=== PATIENT | male | born 1995 | race Caucasian/White ===

== ENCOUNTER 2016-04-07 11:35 | Emergency (ER) | payer OTHER ==
[2016-04-07] VITALS (7 sets, daily range): BP systolic 101–148; BP diastolic 44–88; PULSE 70–82; TEMP 31.9; O2SAT 100
[2016-04-07] MEDS ORDERED: RAPID SEQUENCE INDUCTION BAG ONE (11:38)
[2016-04-07] MEDS ORDERED: ETOMIDATE 2 MG/ML 20 ML VIAL IV ONE (11:38)
[2016-04-07] MEDS ORDERED: ROCURONIUM BROMIDE 10 MG/ML 10 ML VIAL IV ONE (11:38)
[2016-04-07] MEDS ORDERED: SODIUM CHLORIDE 0.9% 1000ML 1,000 ML IV ONE (11:53)
[2016-04-07] MEDS ORDERED: SODIUM CHLORIDE 0.9% 1000ML 1,000 ML IV STA (11:53)
--- NOTE | 2016-04-07 11:54 | EMERGENCY ROOM VISIT NOTE ---
History Report prepared by Abi: Marlo Manuel Under the Supervision of: Dr. Radames Spence M.D. First contact with patient: 11:35 Chief Complaint: UNRESPONSIVE Stated Complaint: UNRESPONSIVE History of Present Illness The patient is a 20 year old male who presents to the Emergency Room with complaints of persistent unresponsiveness that started prior to arrival today. Per EMS, the patient has been unresponsive for an unknown amount of time. The patient was seen yesterday evening at a [employer] drinking. He was sleeping on a couch and did get up sometime at night, and apparently did fall down the stairs. He was found this morning lying on the floor unresponsive. The patient has trauma on his left forehead, a bruise on his left abdomen, an abrasion on both knees, and a bruise on his left elbow. He was hypotensive, and has a blood pressure in the 70s and 80s. His blood sugar is 234. Source of History: EMS History Limited By: other (unresponsiveness) Onset: Prior to arrival today Position: other (global - unresponsiveness) Timing: other (persistent) Note: Associated symptoms: trauma on left forehead, bruise on left abdomen, abrasion on both knees, bruise on left elbow. Review of Systems ROS limited secondary to patient's unresponsiveness. Past Medical & Surgical Unknown Family History Family history unobtainable secondary to patient's unresponsiveness. Social History Alcohol Use: occasionally Marital Status: single Housing Status: lives with roommate Occupation Status: [employer] student Current/Historical Medications Unable to Obtain Active Prescriptions or Reported Meds Allergies Uncoded Allergies: SEASONAL ALLERGIES (Allergy, Mild, runny nose, 04/07/16) Physical Exam Vital Signs Date Time Temp Pulse Resp B/P Pulse Ox O2 Delivery O2 Flow Rate FiO2 04/07/16 13:40 77 100 04/07/16 13:37 76 17 123/63 100 Mechanical Ventilator 04/07/16 13:35 77 100 04/07/16 13:30 75 100 04/07/16 13:26 73 22 124/47 100 04/07/16 13:25 73 22 100 04/07/16 13:20 71 18 100 04/07/16 13:17 70 18 132/46 100 Mechanical Ventilator 04/07/16 13:15 70 18 101/88 100 04/07/16 13:15 70 18 101/88 100 04/07/16 13:14 124/47 04/07/16 13:10 71 18 119/44 100 04/07/16 13:08 116/43 04/07/16 13:07 71 18 119/44 100 Mechanical Ventilator 04/07/16 13:05 70 18 124/44 100 17 13:05 70 18 124/44 100 17 13:03 119/44 04/07/16 13:01 72 18 114/39 100 Mechanical Ventilator 04/07/16 13:00 72 18 0/0 100 04/07/16 13:00 72 18 114/49 100 04/07/16 12:58 114/39 04/07/16 12:56 76 18 127/44 100 04/07/16 12:55 76 18 100 04/07/16 12:53 127/44 04/07/16 12:51 135/43 04/07/16 12:51 78 18 135/43 98 Mechanical Ventilator 04/07/16 12:50 77 18 99 04/07/16 12:45 82 18 100 04/07/16 12:45 31.9 82 18 148/57 100 04/07/16 12:40 66 18 100 04/07/16 12:36 66 16 148/57 100 Mechanical Ventilator 04/07/16 12:35 67 15 100 04/07/16 12:33 148/57 04/07/16 12:30 70 14 100 04/07/16 12:28 146/53 04/07/16 12:25 71 14 100 04/07/16 12:23 144/45 04/07/16 12:20 0 137/54 04/07/16 12:20 68 137/54 66 Mechanical Ventilator 04/07/16 12:15 0 04/07/16 12:10 0 04/07/16 12:05 0 04/07/16 12:00 0 04/07/16 11:55 0 04/07/16 11:50 74/57 04/07/16 11:50 80 0 96 04/07/16 11:48 74/57 04/07/16 11:47 60 18 106/45 99 Nasal Cannula 2.0 04/07/16 11:45 58 14 100 04/07/16 11:44 106/45 04/07/16 11:40 51 04/07/16 11:40 46 100 2/3/17 11:37 107/50 04/07/16 11:35 100 Nasal Cannula 2.0 04/07/16 11:35 31.9 48 16 107/50 100 Nasal Cannula 2.0 Physical Exam General: Well developed well nourished young male who is unresponsive to painful stimuli, breathing shallowly on supplemental oxygen. HEENT: Pupils are mid-sized and minimally reactive. There may be a right eye disconjugate gaze. Bruise on left forehead, and blood from right naries. Neck: Supple with a midline trachea. No meningeal signs or stiffness, no JVD or bruits. No Stridor. Chest: Clear to auscultation bilaterally. No wheezes or rhonchi. No increased work of breathing. Heart: regular rate and rhythm. Abdomen: Soft nontender, nondistended without rebound guarding or rigidity. Extremities: No cyanosis clubbing or edema. No calf tenderness or assymetry Spine/Back. Non tender to palpation. No CVA tenderness Skin: There is a bruise on left abdomen and several bruises on extremities. Neurologic exam: Nonresponsive. Medical Decision & Procedures ER Provider Diagnostic Interpretation: X ray results as stated below per my interpretation and radiologist interpretation. Other radiology results as stated below per my review and radiologist interpretation: CT HEAD WITHOUT CONTRAST (CT) CLINICAL HISTORY: Trauma. Unresponsive patient. COMPARISON STUDY: No previous studies for comparison. TECHNIQUE: Axial CT of the brain is performed from the vertex to the skull base. IV contrast was not administered for this examination. CT DOSE: 729.78 mGycm FINDINGS: There is a right-sided mixed attenuation subdural hematoma measuring 9 mm in maximal thickness. There is also hemorrhage layering along the right tentorium. There is 11 mm of right to left midline shift. There is right hemispheric edema. There is trace left parietal subarachnoid hemorrhage There is no evidence of pathologic ventricular dilatation. There is no evidence of acute sinusitis IMPRESSION: Right convexity and tentorial subdural hematoma measuring 9 mm in maximal thickness. There is secondary edema with 11 mm of right to left midline shift. Trace left parietal subarachnoid hemorrhage is also suspected Electronically signed by: Tom Kumar M.D. 04/07/2016 12:25 PM Dictated Date/Time: 04/07/2016 12:22 PM CHEST ONE VIEW PORTABLE CLINICAL HISTORY: Atypical chest pain. RESPIRATORY FAILURE COMPARISON STUDY: No previous studies for comparison. FINDINGS: There is an endotracheal tube 47 mm above the evon. The heart is normal in size. There is no focal pulmonary consolidation. There are no pleural effusions.[ IMPRESSION: Endotracheal tube 47 mm above the evon. No evidence of focal pulmonary consolidation. Electronically signed by: Tom Kumar M.D. 04/07/2016 12:10 PM Dictated Date/Time: 04/07/2016 12:[address] OF THE CERVICAL SPINE CLINICAL HISTORY: Trauma. Unresponsive patient COMPARISON STUDY: No previous studies for comparison. CT DOSE: 500.67 mGycm TECHNIQUE: CT scan of the cervical spine was performed from the skull base to the thoracic inlet. Images are reviewed in the axial, sagittal, and coronal planes. IV contrast was not administered for this examination. FINDINGS: There is indwelling endotracheal tube. No pneumothorax is visualized. The prevertebral soft tissues are normal. No fractures or subluxations are visualized. IMPRESSION: No evidence of acute fracture or traumatic subluxation. Electronically signed by: Tom Kumar M.D. 04/07/2016 12:28 PM Dictated Date/Time: 04/07/2016 12:[address] OF THE CHEST WITHOUT IV CONTRAST CLINICAL HISTORY: Trauma. Unresponsive patient. COMPARISON STUDY: No previous studies for comparison. CT DOSE: 557.51 mGycm TECHNIQUE: CT of the thorax was performed from the thoracic inlet to the lung bases. Images are reviewed in the axial, sagittal, and coronal planes. IV contrast was not administered for this examination. FINDINGS: Thyroid: Imaged portions of the thyroid gland are normal in appearance. Thoracic aorta: No definite thoracic aortic abnormalities are visualized on this noncontrast study. Soft tissue anterior to the vascular likely represents thymus. Evaluation is limited due to the lack of intravenous contrast. If there is clinical concern the presence of mediastinal injury, the examination should be performed following administration of intravenous contrast. Heart: The heart is normal in size and configuration, without pericardial effusion. Lungs and pleural spaces: No pneumothorax is visualized. There is a pneumomediastinum. There is pulmonary interstitial emphysema within the left lower lobe. There is an indwelling endotracheal tube positioned 2.8 cm above the evon. Mediastinum: There is no mediastinal lymphadenopathy. Gisele: Clear. Axilla: Clear. Upper abdomen: There is a suspected splenic hemorrhage. There is perihepatic hemorrhage. Skeletal structures: There are no lytic or blastic osseous lesions. IMPRESSION: 1. Hemoperitoneum and suspected splenic injury 2. Pneumomediastinum and left lower lobe pulmonary interstitial emphysema 3. Endotracheal tube 2.8 cm above the evon 4. Soft tissue anterior to the thoracic aorta likely representing thymus. If there is clinical concern over the presence of a mediastinal injury, then this examination should be repeated with intravenous contrast. Electronically signed by: Tom Kumar M.D. 04/07/2016 12:37 PM Dictated Date/Time: 04/07/2016 12:[address] SCAN OF THE ABDOMEN AND PELVIS WITHOUT IV CONTRAST CLINICAL HISTORY: Trauma. COMPARISON STUDY: No priors. TECHNIQUE: CT scan of the abdomen and pelvis is performed from the lung bases to the proximal femora. Images are reviewed in the axial, sagittal, and coronal planes. IV contrast was not administered for this examination as per the referring clinician. Note that the examination is significantly suboptimal without IV contrast in the setting of trauma. The examination is also degraded by streak artifact from the arms which could not be elevated above the abdomen. Automated dose control exposure was utilized. CT DOSE: 1087.24 mGycm FINDINGS: Lung bases: The heart is normal in size and without pericardial effusion. Pneumomediastinum is present in the lower thorax. The lung bases are otherwise clear. Liver: Evaluation of the liver is degraded by streak artifact. The unenhanced liver is normal in size, contour, and attenuation. There is no intrahepatic biliary ductal dilatation. Although a parenchymal defect is not identified, a liver laceration is strongly suspected due to significant surrounding hemoperitoneum. Gallbladder: Unremarkable. Spleen: Spleen is not well assessed without IV contrast. There is diffusely diminished attenuation throughout the spleen with surrounding hemoperitoneum consistent with a splenic injury/laceration. Pancreas: Unremarkable. Adrenal glands: Unremarkable. Kidneys: The unenhanced kidneys are normal in size and without hydronephrosis. There are no renal calculi identified. There is no evidence of contour deforming renal mass lesion. Abdominal vasculature: The abdominal aorta is normal in course and caliber. Bowel: The small bowel and colon are normal in course and caliber. The appendix is not visualized. Peritoneum: There is a moderate volume of hemoperitoneum identified. There is blood surrounding both the liver and the spleen, as well as blood layering within the paracolic gutters and in the pelvis. No intraperitoneal free air is seen. Lymphadenopathy: None. Pelvic viscera: The bladder, prostate, and seminal vesicles are normal as visualized. Skeletal structures: No fracture is identified. No lytic or blastic lesions are seen. IMPRESSION: 1. Significant suboptimal examination without IV contrast. 2. Moderate volume of hemoperitoneum. 3. There is significant abnormal attenuation seen throughout the spleen with surrounding blood. The appearance is consistent with high-grade splenic injury/laceration. This cannot be further assessed without IV contrast. 4. Hepatic injury/laceration is also suspected given the volume of perihepatic blood. A hepatic parenchymal defect is not clearly visualized due to significant streak artifact and lack of IV contrast. Less likely this could be related to blood from the splenic injury. 5. No fracture is seen. 6. Pneumomediastinum is noted at the lung bases. Findings were called to the emergency department at the time of interpretation. Electronically signed by: Wojciech Mccarthy M.D. 04/07/2016 12:37 PM CHEST ONE VIEW PORTABLE CLINICAL HISTORY: INTUBATED UNRESPONSIVE PATIENT COMPARISON STUDY: April 07, 2016 FINDINGS: There is an endotracheal tube 4.8 cm above the evon. There is no focal pulmonary consolidation. There is been interval placement of a left chest tube which projects over the left apex. There is minimal subcutaneous emphysema on the left. No significant pneumothorax is visualized.[ IMPRESSION: Interval placement of a left-sided chest tube which projects over the left apex. Endotracheal tube 4.8 cm above the evon. Electronically signed by: Tom Kumar M.D. 04/07/2016 1:18 PM Dictated Date/Time: 04/07/2016 1:17 PM Laboratory Results 04/07/16 12:25 Red Blood Count 3.29, Mean Corpuscular Volume 84.5, Mean Corpuscular Hemoglobin 29.2, Mean Corpuscular Hemoglobin Concent 34.5, Mean Platelet Volume 9.2, Neutrophils (%) (Auto) 71.6, Lymphocytes (%) (Auto) 14.7, Monocytes (%) (Auto) 10.6, Eosinophils (%) (Auto) 0.2, Basophils (%) (Auto) 0.1, Neutrophils # (Auto ) 29.22, Lymphocytes # (Auto) 5.99, Monocytes # (Auto) 4.32, Eosinophils # (Auto ) 0.07, Basophils # (Auto) 0.04 04/07/16 12:25 Test 04/07/16 11:12 04/07/16 11:41 04/07/16 11:45 04/07/16 12:05 Salicylates Level 1.7 mg/dl (2.8-20) Acetaminophen Level < 2 ug/ml (10-30) Bedside Lactic Acid Venous > 20.00 mmol/L (0.90-1.70) Bedside Chloride 98 mEq/L (101-112) Bedside Total CO2 11 mEq/l (24-31) Bedside Blood Urea Nitrogen 21 mg/dl (7-18) Bedside Creatinine 3.0 mg/dl Bedside Glucose (other) 225 mg/dl (70-99) Bedside Ionized Calcium (Katie) 1.07 mmol/l Bedside Troponin I 0.060 ng/ml (0-0.045) VG-Gub-Q-Type Natriuretic Peptide < 15 pg/ml (0-450) Test 04/07/16 12:25 04/07/16 13:17 White Blood Count 40.78 K/uL (4.8-10.8) Red Blood Count 3.29 M/uL (4.7-6.1) Hemoglobin 9.6 g/dL (14.0-18.0) Hematocrit 27.8 % (42-52) Mean Corpuscular Volume 84.5 fL (80-100) Mean Corpuscular Hemoglobin 29.2 pg (25-34) Mean Corpuscular Hemoglobin Concent 34.5 g/dl (32-36) Platelet Count 221 K/uL (130-400) Mean Platelet Volume 9.2 fL (7.4-10.4) Neutrophils (%) (Auto) 71.6 % Lymphocytes (%) (Auto) 14.7 % Monocytes (%) (Auto) 10.6 % Eosinophils (%) (Auto) 0.2 % Basophils (%) (Auto) 0.1 % Neutrophils # (Auto) 29.22 K/uL (1.4-6.5) Lymphocytes # (Auto) 5.99 K/uL (1.2-3.4) Monocytes # (Auto) 4.32 K/uL (0.11-0.59) Eosinophils # (Auto) 0.07 K/uL (0-0.5) Basophils # (Auto) 0.04 K/uL (0-0.2) RDW Standard Deviation 40.2 fL (36.4-46.3) RDW Coefficient of Variation 13.2 % (11.5-14.5) Immature Granulocyte % (Auto) 2.8 % Immature Granulocyte # (Auto) 1.14 K/uL (0.00-0.02) Echinocytes 1+ Prothrombin Time 12.8 SECONDS (9.0-12.0) Prothromb Time International Ratio 1.2 (0.9-1.1) Activated Partial Thromboplast Time 35.7 SECONDS (21.0-31.0) Partial Thromboplastin Ratio 1.4 Anion Gap 32.0 mmol/L (3-11) Estimated GFR () 41.6 Estimated GFR (Non- 35.9 BUN/Creatinine Ratio 7.7 (10-20) Calcium Level 7.5 mg/dl (8.5-10.1) Total Bilirubin 0.2 mg/dl (0.2-1) Direct Bilirubin 0.1 mg/dl (0-0.2) Aspartate Amino Transf (AST/SGOT) 87 U/L (15-37) Alanine Aminotransferase (ALT/SGPT) 91 U/L (12-78) Alkaline Phosphatase 96 U/L (45-117) Total Creatine Kinase 343 U/L (39-308) Creatine Kinase MB 6.3 ng/ml (0.5-3.6) Creatine Kinase MB Ratio 1.8 (0-3.0) Total Protein 5.5 gm/dl (6.4-8.2) Albumin 3.2 gm/dl (3.4-5.0) Lipase 63 U/L (73-393) Thyroid Stimulating Hormone (TSH) 0.832 uIu/ml (0.300-4.500) Ethyl Alcohol mg/dL 107.0 mg/dl (0-3) Bedside Hemoglobin 5.8 g/dl (14.0-18.0) Bedside Hematocrit 17 % (42-52) Bedside Blood Gas pH (LAB) 6.97 (7.35-7.45) Bedside Blood Gas pCO2 (LAB) 42 mmHg (35-46) Bedside Blood Gas pO2 (LAB) > 420 mmHg (80-95) Bedside Blood Gas HCO3 (LAB) 10 meq/L (19-24) Bedside Blood Gas Total CO2 11 mEq/l (24-31) Bedside Blood Gas Base Excess (LAB) -22.0 meq/L (-9-1.8) Bedside Blood Gas O2 Saturation 100.0 % (90-95) Bedside Sodium 151 mEq/L (135-144) Bedside Potassium 2.6 mEq/L (3.3-5.0) Laboratory studies as stated above per my review. Medications Administered Medications (Trade) Dose Ordered Sig/Luc Route Start Time Stop Time Status Last Admin Dose Admin Miscellaneous 1 ea 1 ea STK-MED ONCE N/A 04/07/16 11:38 04/07/16 11:40 DC 04/07/16 11:50 1 EA Sodium Chloride 1,000 ml @ 999 mls/hr Q1H1M STAT IV 04/07/16 11:53 04/07/16 12:53 DC 04/07/16 11:47 999 MLS/HR Sodium Chloride (Nss 1000ml) 1,000 ml @ 200 mls/hr Q5H ONCE IV 04/07/16 11:53 04/07/16 16:52 04/07/16 11:45 200 MLS/HR Sodium Bicarbonate (Sodium Bicarbonate 8.4% Inj) 150 meq STK-MED ONCE .ROUTE 04/07/16 12:35 04/07/16 12:37 DC 04/07/16 12:40 150 MEQ Mannitol (Mannitol 25%) 50 gm NOW ONCE IV 04/07/16 12:45 04/07/16 13:12 DC 04/07/16 12:40 50 GM Sodium Chloride (Sodium Chloride 14.6%) 387.5 meq NOW ONCE IV 04/07/16 13:15 04/07/16 13:16 DC 04/07/16 13:28 387.5 MEQ Potassium Chloride (Kcl 10 Meq / Wtr) 20 meq STK-MED ONCE IV 04/07/16 13:47 04/07/16 13:48 DC 04/07/16 13:47 20 MEQ Calcium Gluconate (Calcium Gluconate 10%) 1,000 mg STK-MED ONCE IV 04/07/16 13:48 04/07/16 13:50 DC 04/07/16 13:54 1,000 MG Procedure Endotracheal Intubation Indication Unresponsive, airway protection. The patient was on 100% oxygen via NRB prior to the procedure. Suction, airway equipment, RSI drugs, respiratory equipment, and appropriate personnel were prepared prior to the initiation of the procedure. A time out was taken. Induction was performed with Rocuronium. No sedation was required due to altered mental status. After observing the clinical benefit of the medications , the airway was easily visualized utilizing a Mac 4.0 blade. A 7.5 size ETT tube was placed atraumatically to 24 cm at the teeth using standard technique. The cuff inflated without signs of malfunction. There were bilateral breath sounds, positive colormetric change, no gastric sounds, a good capnography waveform, and post procedure pulse oximetry was 100%. Paralysis was administered using Rocuronium. There were no complications. ED Course 1136: Past medical records reviewed. The patient was evaluated in room B1, and a history and physical examination were performed. 1153: Ordered NSS 1000 ml @ 200 mls/hr IV, NSS 1000 ml @ 999 mls/hr IV. 1204: I talked to the patient's brother. 1215: I talked to the patient's mother. She agrees to have the patient transferred to [facility] for further treatment. 1225: I discussed the patient with a surgeon at [facility] - [facility] accept the patient as a transfer for further treatment via helicopter. 1315: [facility] is at bedside. 1359: I discussed the patient with Dr. Sutherland - [place] trauma surgeon. Medical Decision Differential diagnoses include: traumatic injury, intracranial hemorrhage, alcohol intoxication, sepsis, anemia, intraabdominal injuries, pneumothorax, aspiration, electrolyte or metabolic abnormality. This patient comes in as described above. He was brought in emergently by EMS after being found unresponsive and altered mental status. He apparently drank last evening. The nurses overhead paged a physician needed in room B1 and I promptly went into the room and saw the patient immediately upon arrival. When he arrived, he was altered and he did have spontaneous respirations but they were shallow with oxygen. his O2 sat was high 90s to 100 and his initial blood pressure here was about 100. he did have a bruise on his face as well as his abdomen and a bloody nose on the right. I was very concerned about trauma, aspiration, central neurologic, toxicologic process and other etiologies. We worked quickly to resuscitate and evaluate him. IV access had been established prior to arrival and we established a second IV and gave him 2 L of IV normal saline as he was hypotensive en route. I did also intubate him as I felt that he was altered and was not protecting his airway. He did not require any sedation. I did however give him a dose of rocuronium IV as he did have some clenching of his teeth. He tolerated this well and the tube was passed on the first attempt positive color change was obtained bilaterally had good breath sounds. He was emergently sent over to CAT scan. I-STAT labs were obtained and showed a creatinine the 3 so I obtained the CAT scans without contrast. He had multiple significant abnormalities seen. He has a subdural with midline shift this some subarachnoid blood as well and has some cerebral edema. Have some a large amount of blood within the abdomen and likely splenic injury and possible liver as well. There is a pneumomediastinum on the left. I called [facility] to get the patient transferred emergently. I talked to the brother at length multiple times who was here and I talked to the mother several times on the telephone as well and made aware of the situation. She did agree and consent to the treatment, blood transfusion, and transfer. Multiple blood testing was obtained. We also ordered trauma blood as he was found to have significant bleeding from his spleen and a hemoglobin 8.8. He was given 2 units of O- here. I also consulted Dr. Marks from the ICU to help manage him in the ER while we're waiting to get him transferred out. I called and talked to the ER doctor as well as the trauma surgeon at [facility] and they have accepted the patient. We had [facility] come to get him as they were closer than [place]. In the meantime, Dr. Soni promptly came down and did place a central line as well as an a line. He also put a left-sided chest tube as there was air which was concerned about possible pneumothorax versus the mediastinum and wanted make sure he was safe for flight. Please refer to Dr. Marks's note. While he was here in the ER, Dr. Carpenter worked aggressively to optimize his respiratory and metabolic factors as well as minimize his ICP/ cerebral edema. He was found to be severely acidotic from a likely metabolic acidosis. His lactic acid was greater than 40. He has been fluid resuscitated as well as had blood. Dr. Marks also worked aggressively to minimize his cerebral edema with mannitol IV as well as 3% normal IV saline. He has also use the ventilator and we elevated the head of the bed. While he was here we did find out after the patient arrived that he apparently fell down some steps last night around 11:00 PM. Given his significant metabolic abnormalities, I suspect that these injuries occurred around that time and he is very acidotic because he was laying around for several hours with these injuries. We did aggressively try to optimize his care and get him transferred expeditiously to [facility] for further surgical care they will likely taken to the operating room for his head and his abdomen. He was here he did not require any sedation. The parents are going to drive from [place] to [place] meet him there. Consults Time Called: 1220 Consulting Physician: A surgeon at [facility] Returned Call: [phone] I discussed the patient with a surgeon at [facility] - [facility] will accept the patient as a transfer for further treatment via helicopter. Additional Consults: Time Called: -- Consulted Physician: Dr. Koko Song trauma surgeon Returned Call: [phone] Additional Comments: I discussed the patient with Dr. Koko Song trauma surgeon. Impression Primary Impression: Subdural hematoma Additional Impressions: Midline shift of brain Altered mental status Splenic laceration Intra-abdominal hematoma Renal failure Acidosis Lactic acidosis Critical Care I have personally spent greater than 120 minutes of critical care time in the direct management of this patient. This includes bedside care, interpretation of diagnostic studies, and testing, discussion with consultants, patient, and family members, and other required patient management activities. This 120 minutes is in excess of all separately billable procedures. Scribe Attestation The scribe's documentation has been prepared under my direction and personally reviewed by me in its entirety. I confirm that the note above accurately reflects all work, treatment, procedures, and medical decision making performed by me. Departure Information Dispostion Transfer Acute Care Facility Prescriptions Unable to Obtain Active Prescriptions or Reported Meds Patient Instructions My [facility] Problem Qualifiers
[2016-04-07 12:00] LABS: ISTAT HEMOGLOBIN 9.9 g/dl (14.0-18.0); ISTAT IONIZED CALCIUM 1.07 mmol/l
--- NOTE | 2016-04-07 12:12 | DIAGNOSTIC IMAGING REPORT ---
CHEST ONE VIEW PORTABLE CLINICAL HISTORY: Atypical chest pain. RESPIRATORY FAILURE COMPARISON STUDY: No previous studies for comparison. FINDINGS: There is an endotracheal tube 47 mm above the evon. The heart is normal in size. There is no focal pulmonary consolidation. There are no pleural effusions.[ IMPRESSION: Endotracheal tube 47 mm above the evon. No evidence of focal pulmonary consolidation. Electronically signed by: Tom Kumar M.D. 04/07/2016 12:10 PM Dictated Date/Time: 04/07/2016 12:09 PM
[2016-04-07 12:23] LABS: POINT OF CARE PRO-BNP < 15 pg/ml (0-450)
[2016-04-07] MEDS ORDERED: MANNITOL 20% 500 ML BAG ONE (12:23)
--- NOTE | 2016-04-07 12:26 | DIAGNOSTIC IMAGING REPORT ---
CT HEAD WITHOUT CONTRAST (CT) CLINICAL HISTORY: Trauma. Unresponsive patient. COMPARISON STUDY: No previous studies for comparison. TECHNIQUE: Axial CT of the brain is performed from the vertex to the skull base. IV contrast was not administered for this examination. CT DOSE: 729.78 mGycm FINDINGS: There is a right-sided mixed attenuation subdural hematoma measuring 9 mm in maximal thickness. There is also hemorrhage layering along the right tentorium. There is 11 mm of right to left midline shift. There is right hemispheric edema. There is trace left parietal subarachnoid hemorrhage There is no evidence of pathologic ventricular dilatation. There is no evidence of acute sinusitis IMPRESSION: Right convexity and tentorial subdural hematoma measuring 9 mm in maximal thickness. There is secondary edema with 11 mm of right to left midline shift. Trace left parietal subarachnoid hemorrhage is also suspected Electronically signed by: Tom Kumar M.D. 04/07/2016 12:25 PM Dictated Date/Time: 04/07/2016 12:22 PM
--- NOTE | 2016-04-07 12:29 | DIAGNOSTIC IMAGING REPORT ---
CT OF THE CERVICAL SPINE CLINICAL HISTORY: Trauma. Unresponsive patient COMPARISON STUDY: No previous studies for comparison. CT DOSE: 500.67 mGycm TECHNIQUE: CT scan of the cervical spine was performed from the skull base to the thoracic inlet. Images are reviewed in the axial, sagittal, and coronal planes. IV contrast was not administered for this examination. FINDINGS: There is indwelling endotracheal tube. No pneumothorax is visualized. The prevertebral soft tissues are normal. No fractures or subluxations are visualized. IMPRESSION: No evidence of acute fracture or traumatic subluxation. Electronically signed by: Tom Kumar M.D. 04/07/2016 12:28 PM Dictated Date/Time: 04/07/2016 12:26 PM
[2016-04-07] MEDS ORDERED: MANNITOL 25% 50 ML VIAL IV SCH (12:30)
[2016-04-07] MEDS ORDERED: SODIUM BICARBONATE 8.4% INJ 50 MEQ/50 ML VIAL ONE (12:35)
--- NOTE | 2016-04-07 12:38 | DIAGNOSTIC IMAGING REPORT ---
CT OF THE CHEST WITHOUT IV CONTRAST CLINICAL HISTORY: Trauma. Unresponsive patient. COMPARISON STUDY: No previous studies for comparison. CT DOSE: 557.51 mGycm TECHNIQUE: CT of the thorax was performed from the thoracic inlet to the lung bases. Images are reviewed in the axial, sagittal, and coronal planes. IV contrast was not administered for this examination. FINDINGS: Thyroid: Imaged portions of the thyroid gland are normal in appearance. Thoracic aorta: No definite thoracic aortic abnormalities are visualized on this noncontrast study. Soft tissue anterior to the vascular likely represents thymus. Evaluation is limited due to the lack of intravenous contrast. If there is clinical concern the presence of mediastinal injury, the examination should be performed following administration of intravenous contrast. Heart: The heart is normal in size and configuration, without pericardial effusion. Lungs and pleural spaces: No pneumothorax is visualized. There is a pneumomediastinum. There is pulmonary interstitial emphysema within the left lower lobe. There is an indwelling endotracheal tube positioned 2.8 cm above the evon. Mediastinum: There is no mediastinal lymphadenopathy. Gisele: Clear. Axilla: Clear. Upper abdomen: There is a suspected splenic hemorrhage. There is perihepatic hemorrhage. Skeletal structures: There are no lytic or blastic osseous lesions. IMPRESSION: 1. Hemoperitoneum and suspected splenic injury 2. Pneumomediastinum and left lower lobe pulmonary interstitial emphysema 3. Endotracheal tube 2.8 cm above the evon 4. Soft tissue anterior to the thoracic aorta likely representing thymus. If there is clinical concern over the presence of a mediastinal injury, then this examination should be repeated with intravenous contrast. Electronically signed by: Tom Kumar M.D. 04/07/2016 12:37 PM Dictated Date/Time: 04/07/2016 12:28 PM
--- NOTE | 2016-04-07 12:38 | DIAGNOSTIC IMAGING REPORT ---
CT SCAN OF THE ABDOMEN AND PELVIS WITHOUT IV CONTRAST CLINICAL HISTORY: Trauma. COMPARISON STUDY: No priors. TECHNIQUE: CT scan of the abdomen and pelvis is performed from the lung bases to the proximal femora. Images are reviewed in the axial, sagittal, and coronal planes. IV contrast was not administered for this examination as per the referring clinician. Note that the examination is significantly suboptimal without IV contrast in the setting of trauma. The examination is also degraded by streak artifact from the arms which could not be elevated above the abdomen. Automated dose control exposure was utilized. CT DOSE: 1087.24 mGycm FINDINGS: Lung bases: The heart is normal in size and without pericardial effusion. Pneumomediastinum is present in the lower thorax. The lung bases are otherwise clear. Liver: Evaluation of the liver is degraded by streak artifact. The unenhanced liver is normal in size, contour, and attenuation. There is no intrahepatic biliary ductal dilatation. Although a parenchymal defect is not identified, a liver laceration is strongly suspected due to significant surrounding hemoperitoneum. Gallbladder: Unremarkable. Spleen: Spleen is not well assessed without IV contrast. There is diffusely diminished attenuation throughout the spleen with surrounding hemoperitoneum consistent with a splenic injury/laceration. Pancreas: Unremarkable. Adrenal glands: Unremarkable. Kidneys: The unenhanced kidneys are normal in size and without hydronephrosis. There are no renal calculi identified. There is no evidence of contour deforming renal mass lesion. Abdominal vasculature: The abdominal aorta is normal in course and caliber. Bowel: The small bowel and colon are normal in course and caliber. The appendix is not visualized. Peritoneum: There is a moderate volume of hemoperitoneum identified. There is blood surrounding both the liver and the spleen, as well as blood layering within the paracolic gutters and in the pelvis. No intraperitoneal free air is seen. Lymphadenopathy: None. Pelvic viscera: The bladder, prostate, and seminal vesicles are normal as visualized. Skeletal structures: No fracture is identified. No lytic or blastic lesions are seen. IMPRESSION: 1. Significant suboptimal examination without IV contrast. 2. Moderate volume of hemoperitoneum. 3. There is significant abnormal attenuation seen throughout the spleen with surrounding blood. The appearance is consistent with high-grade splenic injury/laceration. This cannot be further assessed without IV contrast. 4. Hepatic injury/laceration is also suspected given the volume of perihepatic blood. A hepatic parenchymal defect is not clearly visualized due to significant streak artifact and lack of IV contrast. Less likely this could be related to blood from the splenic injury. 5. No fracture is seen. 6. Pneumomediastinum is noted at the lung bases. Findings were called to the emergency department at the time of interpretation. Electronically signed by: Wojciech Mccarthy M.D. 04/07/2016 12:37 PM Dictated Date/Time: 04/07/2016 12:27 PM
[2016-04-07] MEDS ORDERED: MANNITOL 25% 50 ML VIAL IV ONE (12:45)
[2016-04-07 12:52] LABS: ISTAT ARTERIAL BLOOD GAS HCO3 8 meq/L (19-24); ISTAT ARTERIAL BLOOD GAS PCO2 41 mmHg (35-46); ISTAT ARTERIAL BLOOD GAS PO2 > 420 mmHg (80-95); ISTAT CARBON DIOXIDE 9 mEq/l (24-31); ISTAT HEMATOCRIT 26 % (42-52); ISTAT HEMOGLOBIN 8.8 g/dl (14.0-18.0); ISTAT SODIUM 139 mEq/L (135-144)
[2016-04-07 13:03] LABS: INR 1.1 (0.9-1.1); PARTIAL THROMBOPLASTIN RATIO 1.2
[2016-04-07 13:04] LABS: INR 1.2 (0.9-1.1); PARTIAL THROMBOPLASTIN RATIO 1.4; PROTHROMBIN TIME (PATIENT) 12.8 SECONDS (9.0-12.0)
[2016-04-07 13:09] LABS: HEMATOCRIT 27.8 % (42-52); MEAN CELL VOLUME 84.5 fL (80-100); MEAN CORPUSCULAR HEMOGLOBIN 29.2 pg (25-34); MEAN CORPUSCULAR HGB CONC 34.5 g/dl (32-36); RED BLOOD COUNT 3.29 M/uL (4.7-6.1); WHITE BLOOD COUNT 40.78 K/uL (4.8-10.8)
[2016-04-07 13:13] LABS: ACETAMINOPHEN < 2 ug/ml (10-30)
[2016-04-07 13:15] LABS: BASO % 0.1 %; BASO ABS # 0.04 K/uL (0-0.2); COMPLETE YES; ECHINOCYTES 1+; EOS % 0.2 %; IG% 2.8 %; LYMPH % 14.7 %; LYMPH ABS # 5.99 K/uL (1.2-3.4); MEAN PLATELET VOLUME 9.2 fL (7.4-10.4); MONO % 10.6 %; NEUT % 71.6 %; PLATELET COUNT 221 K/uL (130-400)
[2016-04-07] MEDS ORDERED: [UNRECOGNIZED DRUG - OTHER] IV ONE (13:15)
[2016-04-07] MEDS ORDERED: [UNRECOGNIZED DRUG - OTHER] IV ONE (13:15)
[2016-04-07] MEDS ORDERED: [UNRECOGNIZED DRUG - MIXTURE] IV ONE (13:15)
--- NOTE | 2016-04-07 13:19 | DIAGNOSTIC IMAGING REPORT ---
CHEST ONE VIEW PORTABLE CLINICAL HISTORY: INTUBATED UNRESPONSIVE PATIENT COMPARISON STUDY: April 07, 2016 FINDINGS: There is an endotracheal tube 4.8 cm above the evon. There is no focal pulmonary consolidation. There is been interval placement of a left chest tube which projects over the left apex. There is minimal subcutaneous emphysema on the left. No significant pneumothorax is visualized.[ IMPRESSION: Interval placement of a left-sided chest tube which projects over the left apex. Endotracheal tube 4.8 cm above the evon. Electronically signed by: Tom Kumar M.D. 04/07/2016 1:18 PM Dictated Date/Time: 04/07/2016 1:17 PM
[2016-04-07 13:20] LABS: ALT/SGPT 91 U/L (12-78); AST/SGOT 87 U/L (15-37); BLOOD UREA NITROGEN 19 mg/dl (7-18); BUN/CREATININE RATIO 7.7 (10-20); CALCIUM 7.5 mg/dl (8.5-10.1); CHLORIDE 103 mmol/L (98-107); GLUCOSE 208 mg/dl (70-99); POTASSIUM 2.9 mmol/L (3.5-5.1); SODIUM 143 mmol/L (136-145)
[2016-04-07 13:21] LABS: CARBON DIOXIDE 7 mmol/L (21-32)
[2016-04-07 13:27] LABS: ALKALINE PHOSPHATASE 96 U/L (45-117); CKMB/CK RATIO 1.8 (0-3.0); THYROID STIMULATING HORMONE 0.832 uIu/ml (0.300-4.500)
[2016-04-07] MEDS ORDERED: POTASSIUM CHLORIDE 10 MEQ / 100ML WTR IV ONE (13:47)
[2016-04-07] MEDS ORDERED: CALCIUM GLUCONATE 10% 10 ML VIAL IV ONE (13:48)
[2016-04-07 14:28] LABS: ISTAT ARTERIAL BLOOD GAS HCO3 10 meq/L (19-24); ISTAT ARTERIAL BLOOD GAS PCO2 42 mmHg (35-46); ISTAT ARTERIAL BLOOD GAS PO2 > 420 mmHg (80-95); ISTAT ARTERIAL BLOOD GAS pH 6.97 (7.35-7.45); ISTAT CARBON DIOXIDE 11 mEq/l (24-31); ISTAT HEMATOCRIT 17 % (42-52); ISTAT HEMOGLOBIN 5.8 g/dl (14.0-18.0); ISTAT SODIUM 151 mEq/L (135-144)
--- NOTE | 2016-04-07 19:38 | Procedure Note ---
Procedure Note Procedure Date Apr 07, 2016. Procedure Description Procedure Name: Right arterial line Procedure time out: side/site verified, patient ID confirmed, correct procedure Consent obtained: emergent consent implied Time of procedure: 11:30 Performed by: attending Indications: diagnostic Contraindications: none Description: The patient's right wrist was prepped with chlorhexidine and draped in a sterile fashion, ultrasound guidance was used in a dynamic fashion, patient's wrist was anesthetized with 1% lidocaine, 1 mL. A 20-gauge arterial line was inserted into the right radial artery good blood return was noted a guidewire was advanced into the artery and a 20-gauge catheter was passed over that by a modified Seldinger technique. Good blood return was noted, the patient tolerated the procedure well without complication. Complications: none Patient tolerated procedure: well Post-procedure vital signs: reviewed and stable Comments: Trace blood loss Central Line Procedure time out: side/site verified, patient ID confirmed, sterile procedure used Consent obtained: emergent consent implied Time of procedure: 11:00 Performed by: attending Indications: central drug admin., other (known liver, splenic laceration) Prep: chlorhexadine prep, sterile drape, sterile procedures used Central line lumen: double Central line location: subclavian (L) Additional details: Selinger technique used, line sutured, good blood return CXR: appropriate position, other (presumptive left pneumothorax found on CT prior to chest central line insertion) Complications: none Patient tolerated procedure: well Post-procedure vital signs: reviewed and stable Comments: Subclavian 9 Somali introducer placed in left chest as there is a presumptive pneumothorax on the left side which will require chest drainage as the patient is a trauma patient and will be flown to [facility] for further evaluation and management
--- NOTE | 2016-04-07 19:50 | Procedure Note ---
Procedure Note Procedure Date: 04/07/2016 Procedure: chest tube placement Pre-procedure Diagnosis: Left pneumothorax Post-procedure Diagnosis: same as above ~ Prior to Procedure: Informed Consent: Emergent consent implied, patient intubated with significant trauma. Attending Staff: Scott Soni D.O. ~ Skin Prep:~ Cleansed with Betadine Anesthesia: None ~ Indications: Patient is a 20-year-old male with polytrauma, significant subdural hematoma with midline shift, presumptive left pneumothorax on CT chest who will be flying via helicopter EMS to the trauma center. ~ Description of Procedure: Following sterile skin prep and implementation of full sterile barrier precautions, a 1 cm incision was placed at the fifth intercostal space of the anterior axillary line on the left chest. Subcutaneous tissue was bluntly dissected down to the rib, care was taken to transverse over the superior portion of the rib and entered the chest. I finger was inserted into the chest cavity feeling for any loculations and confirmation of positioning. A 36 Zimbabwean thoracostomy tube was placed into the left pleural cavity(s) in the anterior axillary line without difficulty.~ The tube was connected to a water sealed collection system with 20 cm H2O suction.~ Placement was confirmed with a stat portable chest x-ray. ~ Specimens: None Findings: NA Estimated blood loss: Trace
--- NOTE | 2016-04-07 20:24 | Critical Care Consultation ---
Critical Care Consultation Date of Consultation: Apr 07, 2016. Attending Physician: Radames Spence MD Reason for Consultation: Resuscitation of polytrauma, subdural hematoma, intra-abdominal hemoperitoneum History of Present Illness History was obtained from Dr. Spence. Reportedly the patient had been at a fraternity [employer], was reportedly drinking alcohol, suffered a mechanical fall at some point. It is unclear with the time interval was from the initial injury until he was discovered to be unresponsive and paramedics were called. I was contacted by Dr. Spence to assist with aggressive resuscitate measures. I reviewed personally reviewed the CT images which demonstrated a significant subdural hematoma and significant midline shift, I also reviewed the CT scan of the chest and abdomen which revealed an obvious hemoperitoneum, fluid around the liver suggestive of a liver laceration, and signs of a probable left pneumothorax. Past Medical/Surgical History Unable to obtain due to the acuity of the condition Social History Reportedly was drinking at a [employer] democr[employer], alcohol level was greater than 100 mg/dL Smoking Status: Unknown if Ever Smoked Marital Status: single Housing Status: lives with roommate Occupation Status: [employer] student Allergies Uncoded Allergies: SEASONAL ALLERGIES (Allergy, Mild, runny nose, 04/07/16) Home Medications Unable to Obtain Active Prescriptions or Reported Meds Current Inpatient Medications Unable to obtain due to the acuity the condition Review of Systems Unable to be obtained due to the acuity of the condition Physical Exam Date Time Temp Pulse Resp B/P Pulse Ox O2 Delivery O2 Flow Rate FiO2 04/07/16 13:40 77 100 04/07/16 13:37 76 17 123/63 100 Mechanical Ventilator 04/07/16 13:35 77 100 04/07/16 13:30 75 100 04/07/16 13:26 73 22 124/47 100 04/07/16 13:25 73 22 100 04/07/16 13:20 71 18 100 04/07/16 13:17 70 18 132/46 100 Mechanical Ventilator 04/07/16 13:15 70 18 101/88 100 04/07/16 13:15 70 18 101/88 100 04/07/16 13:14 124/47 04/07/16 13:10 71 18 119/44 100 04/07/16 13:08 116/43 04/07/16 13:07 71 18 119/44 100 Mechanical Ventilator 04/07/16 13:05 70 18 124/44 100 2/3/17 13:05 70 18 124/44 100 04/07/16 13:03 119/44 04/07/16 13:01 72 18 114/39 100 Mechanical Ventilator 04/07/16 13:00 72 18 0/0 100 04/07/16 13:00 72 18 114/49 100 04/07/16 12:58 114/39 04/07/16 12:56 76 18 127/44 100 04/07/16 12:55 76 18 100 04/07/16 12:53 127/44 04/07/16 12:51 135/43 04/07/16 12:51 78 18 135/43 98 Mechanical Ventilator 04/07/16 12:50 77 18 99 04/07/16 12:45 82 18 100 04/07/16 12:45 31.9 82 18 148/57 100 04/07/16 12:40 66 18 100 04/07/16 12:36 66 16 148/57 100 Mechanical Ventilator 04/07/16 12:35 67 15 100 04/07/16 12:33 148/57 04/07/16 12:30 70 14 100 04/07/16 12:28 146/53 04/07/16 12:25 71 14 100 04/07/16 12:23 144/45 04/07/16 12:20 0 137/54 04/07/16 12:20 68 137/54 66 Mechanical Ventilator 04/07/16 12:15 0 04/07/16 12:10 0 04/07/16 12:05 0 04/07/16 12:02 100 04/07/16 12:00 0 04/07/16 11:55 0 04/07/16 11:50 74/57 04/07/16 11:50 80 0 96 04/07/16 11:48 74/57 04/07/16 11:47 60 18 106/45 99 Nasal Cannula 2.0 04/07/16 11:45 58 14 100 04/07/16 11:44 106/45 04/07/16 11:40 51 04/07/16 11:40 46 100 04/07/16 11:37 107/50 04/07/16 11:35 100 Nasal Cannula 2.0 04/07/16 11:35 31.9 48 16 107/50 100 Nasal Cannula 2.0 HEENT obvious bruising around the face, pupils were approximately 4 mm and not reactive, fixed Patient had been intubated and a cervical collar was in place Chest: No obvious signs of external trauma no crepitance no flail chest. Abdomen: Some bruising was noted Pelvis: Stable : Circumcised male normal external genitalia, Sharif catheter present Extremities: Bruising of the bilateral lower extremities, abrasion to the right anterior leon, over which was placed a Band-Aid Neuro: Patient had mild twitching of the right upper extremity when attempting to place the right arterial line, there was no movement to painful stimuli during my evaluation. Laboratory Results Last 24 Hours Test 04/07/16 11:12 04/07/16 11:41 04/07/16 11:45 04/07/16 11:53 Prothrombin Time 12.0 SECONDS Prothromb Time International Ratio 1.1 Activated Partial Thromboplast Time 30.3 SECONDS Partial Thromboplastin Ratio 1.2 Salicylates Level 1.7 mg/dl Acetaminophen Level < 2 ug/ml Bedside Lactic Acid Venous > 20.00 mmol/L Bedside Hemoglobin 9.9 g/dl Bedside Hematocrit 29 % Bedside Sodium 138 mEq/L Bedside Potassium 2.7 mEq/L Bedside Chloride 98 mEq/L Bedside Total CO2 11 mEq/l Anion Gap 33.0 mmol/L Bedside Blood Urea Nitrogen 21 mg/dl Bedside Creatinine 3.0 mg/dl Bedside Glucose (other) 225 mg/dl Bedside Ionized Calcium (Katie) 1.07 mmol/l Creatine Kinase MB Ratio Test 04/07/16 12:05 04/07/16 12:25 04/07/16 12:32 04/07/16 13:17 Bedside Troponin I 0.060 ng/ml EF-Asx-N-Type Natriuretic Peptide < 15 pg/ml White Blood Count 40.78 K/uL Red Blood Count 3.29 M/uL Hemoglobin 9.6 g/dL Hematocrit 27.8 % Mean Corpuscular Volume 84.5 fL Mean Corpuscular Hemoglobin 29.2 pg Mean Corpuscular Hemoglobin Concent 34.5 g/dl Platelet Count 221 K/uL Mean Platelet Volume 9.2 fL Neutrophils (%) (Auto) 71.6 % Lymphocytes (%) (Auto) 14.7 % Monocytes (%) (Auto) 10.6 % Eosinophils (%) (Auto) 0.2 % Basophils (%) (Auto) 0.1 % Neutrophils # (Auto) 29.22 K/uL Lymphocytes # (Auto) 5.99 K/uL Monocytes # (Auto) 4.32 K/uL Eosinophils # (Auto) 0.07 K/uL Basophils # (Auto) 0.04 K/uL RDW Standard Deviation 40.2 fL RDW Coefficient of Variation 13.2 % Immature Granulocyte % (Auto) 2.8 % Immature Granulocyte # (Auto) 1.14 K/uL Echinocytes 1+ Prothrombin Time 12.8 SECONDS Prothromb Time International Ratio 1.2 Activated Partial Thromboplast Time 35.7 SECONDS Partial Thromboplastin Ratio 1.4 Sodium Level 143 mmol/L Potassium Level 2.9 mmol/L Chloride Level 103 mmol/L Carbon Dioxide Level 7 mmol/L Anion Gap 32.0 mmol/L Blood Urea Nitrogen 19 mg/dl Creatinine 2.50 mg/dl Estimated GFR () 41.6 Estimated GFR (Non- 35.9 BUN/Creatinine Ratio 7.7 Random Glucose 208 mg/dl Calcium Level 7.5 mg/dl Total Bilirubin 0.2 mg/dl Direct Bilirubin 0.1 mg/dl Aspartate Amino Transf (AST/SGOT) 87 U/L Alanine Aminotransferase (ALT/SGPT) 91 U/L Alkaline Phosphatase 96 U/L Total Creatine Kinase 343 U/L Creatine Kinase MB 6.3 ng/ml Creatine Kinase MB Ratio 1.8 Total Protein 5.5 gm/dl Albumin 3.2 gm/dl Lipase 63 U/L Thyroid Stimulating Hormone (TSH) 0.832 uIu/ml Ethyl Alcohol mg/dL 107.0 mg/dl Bedside Hemoglobin 8.8 g/dl 5.8 g/dl Bedside Hematocrit 26 % 17 % Bedside Blood Gas pH (LAB) 6.90 6.97 Bedside Blood Gas pCO2 (LAB) 41 mmHg 42 mmHg Bedside Blood Gas pO2 (LAB) > 420 mmHg > 420 mmHg Bedside Blood Gas HCO3 (LAB) 8 meq/L 10 meq/L Bedside Blood Gas Total CO2 9 mEq/l 11 mEq/l Bedside Blood Gas Base Excess (LAB) -25.0 meq/L -22.0 meq/L Bedside Blood Gas O2 Saturation 100.0 % 100.0 % Bedside Sodium 139 mEq/L 151 mEq/L Bedside Potassium 2.9 mEq/L 2.6 mEq/L Diagnostic Results I personally reviewed the CT scan of the head, per my interpretation there was a subdural hematoma on the right, with significant midline shift and obliteration of the right ventricle I personally reviewed the CT scan of the chest, per my interpretation there was findings concerning for a pneumothorax in the left chest. I personally reviewed the CT scan of the abdomen and pelvis, per my interpretation there was obvious fluid in the lower pelvis and significant fluid surrounding the entire liver, this is most concerning for hemoperitoneum in the setting of trauma. Initial radiology reports were not available during my interpretation. Multiple blood gas results were utilized, the patient had profound acidemia, there was mild improvement of his PCO2 mechanical ventilation, as proximally a gradient of 10 between the PCO2 and the end-tidal CO2, goal end-tidal CO2 would be 25-30 which showed corresponds to approximately 35 mmHg which would be ideal in the setting of significant neurotrauma and cerebral edema. The patient was not having any obvious difficulty oxygenating. Patient was noted to be profoundly anemic on initial H&H i-STAT. Patient had a significant base deficit of -22 Assessment & Plan #1 subdural hematoma with midline shift - Hyperventilation to optimal PCO2 of 35 - Elevate the head of the bed - Mannitol, 50 g given IV - Hypertonic saline: With the assistance of my ED clinical pharmacist we gave the equivalent of 100 ML's of 23% saline #2 hemoperitoneum with likely liver laceration and or splenic rupture - Patient was initially hypotensive given 2 units of uncrossed unmatched blood - Goal blood pressure would be to 90-100 systolic: permissively hypotensive in order to prevent further intra-abdominal bleeding #3 profound acidemia - Respiratory compensation to the extent of getting the PCO2 to approximately 35 L millimeters of mercury - Patient was initial pH was approximately 6.8, 3 pills of sodium bicarbonate was immediately given - Patient had marginal improvement in the blood gas repeat was 6.97 - In an effort to prevent further elevation of the patient's sodium levels, I ordered and started to administer CAREN dosing under the calculation of my ED clinical pharmacist - Helicopter EMS was to administer 500 ML's of the exam, this came in a glass container and we worked diligently to transfer the entire medication into 60 mL syringes which was compatible with the EMS pumps #4 left pneumothorax - Patient being transported by helicopter EMS for further evaluation and management by trauma center empiric chest tube placed given findings #5 pneumomediastinum - As reported by radiology #6 acute blood loss anemia - See #2 #7 hypokalemia - 40 mEq of potassium chloride given to the helicopter EMS transport team for administration while in flight #8 hypocalcemia - 1 g calcium chloride given 2 helicopter EMS transport team for administration while in flight #9 traumatic brain injury Course of care: Is consult by Dr. Spence to assist in the resuscitation of a trauma patient. After review of the CT scans, the patient's vital signs had improved and he was no longer hypotensive from the report given of his initial presentation. I initially worked diligently to place a left subclavian line while nursing staff worked to administer the bicarbonate and mannitol After placement of the central line which is under sterile conditions, the left chest was prepped for a chest tube. Chest tube was inserted and secured with 0 silk, placed to a water seal and suction. Given the minimal improvement in the patient's ABG, tromethamine was ordered to help with the acidemia, patient would likely become profoundly hypernatremic additional bicarbonate was given. While still awaiting the helicopter service arrival I placed a right radial arterial line to better assist with blood pressure monitoring, and secured this device with 3-0 silk suture. Care was taken to ventilate the patient to a goal PCO2 of 35 mmHg, patient's head was elevated. I discussed the patient's condition with the patient's brother, advised the patient's brother that he should not drive himself to [facility], and that he should have a friend help him travel. I offered support to the patient's brother as well as prayers for the patient. I am extremely concerned about a grim prognosis. The patient has a very significant traumatic brain injury, with significant intra-abdominal injuries. The patient likely has a delayed presentation given his profound acidemia and I suspect significant liver injury with associated liver dysfunction. I have personally spent 45 minutes of critical care time in the direct management of this patient. This is a life/limb threatening event. This includes time spent evaluating patient, direct bedside care, chart review, placing orders, interpretation of diagnostic studies, discussion with consultants, patient, and family members, as well as other required patient management activities. This time is exclusive of all separately billable procedures, and teaching time and separate from and in addition to any other critical care service time.
== END 2016-04-07 14:18 | disposition short-term general hospital (02) ==
LOC: EDBD 11:35 → C.EDB 11:37
DX: S06.5X9A Traumatic subdural hemorrhage with loss of consciousness of unspecified duration, initial encounter (principal); G93.5 Compression of brain; R41.82 Altered mental status, unspecified; S36.039A Unspecified laceration of spleen, initial encounter; S36.92XA Contusion of unspecified intra-abdominal organ, initial encounter; S36.899A Unspecified injury of other intra-abdominal organs, initial encounter; J98.2 Interstitial emphysema; N19 Unspecified kidney failure; S27.0XXA Traumatic pneumothorax, initial encounter; D62 Acute posthemorrhagic anemia; E87.2 Acidosis; E87.6 Hypokalemia; E83.51 Hypocalcemia; W10.9XXA Fall (on) (from) unspecified stairs and steps, initial encounter; Y92.098 Other place in other non-institutional residence as the place of occurrence of the external cause